=== PATIENT | female | born 1960 | race Caucasian/White ===

== ENCOUNTER 2016-10-16 17:15 | Emergency (ER) | payer OTHER ==
[~2016-10-16 17:15] MED LIST: NALOXONE HCL 0.4 MG/ML AMP IVP ONE
[2016-10-16] MEDS ORDERED: 0.9 % SODIUM CHLORIDE 1,000 ML IV ONE ×3 (17:40→18:36)
[2016-10-16 18:02] LABS: MEAN CORPUSCULAR HEMOGLOBIN 27.4 pg (28.0-34.0)
[2016-10-16 18:09] LABS: eGFR (African) 21; eGFR (Non-African) 17
[2016-10-16] MEDS ORDERED: 0.9 % SODIUM CHLORIDE 500 ML IV ONE (18:11)
--- NOTE | 2016-10-16 18:17 | ED Physician Documentation ---
Altered Mental Status - HISTORIAN Historian: patient, paramedics - HPI Chief Complaint: Altered Mental Status Additional Information: asst living pt nurse called stated sitting on toiled syncopal like. on ems arrival sitting on toilet yet but combative w/intent to transfer-on arrival to ed ess unresponsive but stable vs w/iv fluids rebreather mask. son is present asst w/hx and meds list Onset: hours (reportedly about 2-3 hrs. pt reportedly left [facility] over week end and took meds w/her) Last known Well Date: 10/12/16 Last Known Well Time: 12:00 Last known Well Code/Unknown Code: Unknown (exactly) Character of Altered Mental Status: confused, combative, decreased responsiveness Cognition is Usually: other (essentially unresponsive) Associated Symptoms: none (known) Further Comments: yes (son present helpful and appreciative at our care-agrees w /tnsf [facility] DR SHARMA to med ICU) - ROS EYES/ENT: other (light responsive) CVS/RESP: other (spo2 lo 80's on arrival but up to 100 w/rebreather resp slow deep w/o distress) MS/SKIN/LYMPH: denies: rash, ankle swelling - PAST HX Past History: psychiatric disorder, bipolar, other (IHD BIPOLAR GERD IHD SUBSTANCE ABUSE HEP CCOPD DEPRESSSION) Allergies/Adverse Reactions: Allergies Allergy/AdvReac Type Severity Reaction Status Date / Time Iksqgtw-Qwo-Hep Reductase Allergy Rash Verified 06/04/15 03:50 Inhibitor Home Medications: Ambulatory Orders Medication Instructions Recorded Albuterol Sulfate 2.5 mg IH Q4 PRN 06/07/15 Docusate Sodium [Colace] 100 mg PO DAILY av 06/07/15 Ipratropium [place] 0.2 mg IH Q4 PRN 06/07/15 Solifenacin Succinate [Vesicare] 10 mg PO DAILY u2 06/07/15 Amitriptyline HCl [Elavil] 50 mg PO HS 07/26/15 Cyclobenzaprine HCl [Flexeril] 10 mg PO TID 07/26/15 Lansoprazole [Lansoprazole] 30 mg PO DAILY 07/26/15 Milnacipran HCl [Savella] 100 mg PO BID 07/26/15 Melatonin 10 mg PO HS av 09/13/15 Acetaminophen with Codeine 1 each PO Q4 PRN #20 tablet 02/15/16 [Acetaminophen-Cod #3 Tablet] Amoxicillin [Amoxil] 500 mg PO TID #30 capsule 02/15/16 - SOCIAL HX Smoking History: other (UNKNOWN) Drug Use: methamphetamines, other (ACCORDING TO HISTORY AND FR SON) - FAMILY HX Family History: no significant history - VITAL SIGNS Vital Signs: Vital Signs Temp Pulse Resp BP Pulse Ox 68 136/61 100 10/16/16 17:49 02/15/16 14:37 10/16/16 17:49 - REVIEWED ASSESSMENTS Nursing Assessment Reviewed: Yes Vitals Reviewed: Yes ED Results Lab/Radiology - Orders Orders: ED Orders Category Date Time Status Arterial Blood Gas 1T Care 10/16/16 17:51 Active Continuous EKG monitoring Q30M Care 10/16/16 17:49 Active Continuous Pulse Oximetry Q30M Care 10/16/16 17:[address] IV Lock 1T Care 10/16/16 17:49 Active Urinary catheterization 1T Care 10/16/16 17:[address] BRAIN W/O CONTRAST Routine Exams 10/16/16 Ordered CBC/PLATELET/DIFF Routine Lab 10/16/16 17:50 Received CKMB Stat Lab 10/16/16 17:50 Received CMP Routine Lab 10/16/16 17:50 Received CREATINE KINASE Routine Lab 10/16/16 17:50 Received DRUG SCREEN URINE MEDICAL ONLY Stat Lab 10/16/16 Ordered TROPONIN I (cTnI) Stat Lab 10/16/16 17:50 Received 0.9 % Sodium Chloride [Normal Saline] 1,000 ml Med 10/16/16 17:40 Discontinued IV .STK-MED 0.9 % Sodium Chloride [Normal Saline] 1,000 ml Med 10/16/16 17:50 Active IV Q1H Oxygen Daily Oxygen 10/16/16 18:00 Ordered EKG WITH COMPARISON Stat Ther 10/16/16 Ordered Altered Mental Status Physical - Physical Exam General Appearance: moderate distress, lethargic, other (ess unresponsive) Neuro/Psych: depression slow to respond. No: eyes open HEENT: ALANNA, no apparent trauma, ENT inspection nml Neck: normal inspection, supple Respiratory: chest non-tender, breath sounds normal, wheezes (slight) CVS: reg rate & rhythm, heart sounds normal Abdomen: non-tender Skin: warm/dry. No: cyanosis, diaphoresis, jaundice Extremities: no evidence of injury, no edema Discharge Clincal Impression: substance abuse overdose-unresponsive Referrals: Leonel White MD [Primary Care Provider] - 2 Days Additional Instructions: pt pos for meth benzo and tricyclic-consul DR WHITE send to [facility] SHARMA for med icu adm. report to DR SHARMA Home Medications: Ambulatory Orders Albuterol Sulfate 2.5 mg IH Q4 PRN 06/07/15 Docusate Sodium [Colace] 100 mg PO DAILY av 06/07/15 Ipratropium [place] 0.2 mg IH Q4 PRN 06/07/15 Solifenacin Succinate [Vesicare] 10 mg PO DAILY u2 06/07/15 Amitriptyline HCl [Elavil] 50 mg PO HS 07/26/15 Cyclobenzaprine HCl [Flexeril] 10 mg PO TID 07/26/15 Lansoprazole [Lansoprazole] 30 mg PO DAILY 07/26/15 Milnacipran HCl [Savella] 100 mg PO BID 07/26/15 Melatonin 10 mg PO HS av 09/13/15 Acetaminophen with Codeine [Acetaminophen-Cod #3 Tablet] 1 each PO Q4 PRN #20 tablet 02/15/16 Amoxicillin [Amoxil] 500 mg PO TID #30 capsule 02/15/16 Condition: Fair Disposition: 02 XFER SHT-TRM HOSP Decision to Admit: [id number] Decision Time: 18:46
--- NOTE | 2016-10-16 18:17 | Diagnostic Imaging Report ---
[facility] [id number] [facility] [address] [place], [place]. [address] Report Submission Date: Oct 16, 2016 5:57:19 PM CDT Patient Study Name: ARON SIERRA Date: Oct 16, 2016 5:30:49 PM CDT Modality Type: CT\SR Gender: F Description: CT BRAIN W/O CONTRAST : 62 Institution: [facility] Physician: AYDE SANTOS Examination: CT head without contrast History: Altered mental status Comparison exam: None available Technique: Noncontrast head CT protocol. Findings: Ventricles and sulci are appropriate for patient age. Cerebrocerebellar parenchyma demonstrates normal attenuation. No evidence for parenchymal hemorrhage. No evidence for mass or mass effect. No midline shift. No extra axial fluid collections. Partial visualization of the paranasal sinuses , mastoid air cells, orbits, skull and scalp without gross irregularity. Impression: No acute parenchymal process. No hemorrhage. Electronically signed on Oct 16, 2016 5:57:19 PM CDT by: Connor WALKER
[2016-10-16 18:30] LABS: MONOCYTES % 7 % (0-11); SEGMENTED NEUTROPHILS % 78 % (39-79)
[2016-10-16] MEDS ORDERED: NALOXONE HCL 0.4 MG/ML AMP IVP ONE (18:55)
[2016-10-16 19:16] VITALS: BP 110/66
[2016-10-17 05:28] LABS: AMPHETAMINE NEGATIVE ng/mL (<1000); BARBITURATES NEGATIVE ng/mL (<300); CANNABINOIDS NEGATIVE ng/mL (< 50); COCAINE NEGATIVE ng/mL (<150); METHAMPHETAMINE NON NEGATIVE ng/mL (<1000); METHYLENEDIOXYMETHAMPHETAMINE NEGATIVE ng/mL (<500); OPIATES NEGATIVE ng/mL (<300)
== END 2016-10-16 19:09 | disposition short-term general hospital (02) ==
LOC: ED 17:15
DX: T50.904A Poisoning by unspecified drugs, medicaments and biological substances, undetermined, initial encounter (principal); X58.XXXA Exposure to other specified factors, initial encounter; Y93.9 Activity, unspecified; Y99.9 Unspecified external cause status
CPT/HCPCS: 51702; 70450; 80053; 82550; 82553; 84484; 85025; J2310; J7030; J7060; 80377; 96361; 96367; 96372; 99284; G0481; S1016

== ENCOUNTER 2018-07-31 11:46 | Emergency (ER) | payer OTHER ==
--- NOTE | 2018-07-31 12:52 | ED Physician Documentation ---
General Adult - HISTORIAN Historian: patient - HPI Stated Complaint: high blood pressure Chief Complaint: General Adult Additional Information: Patient presents [facility] ED via ambulance from [facility] after waking up this morning with a headache. Patient states she took her blood pressure and it was 201/113 so she took her morning medication of Metoprolol but the blood pressure did not come down. She was very worried about this and her headache got worse and she had an episode of vomiting. Upon arrival to ER patient blood pressure was 179/84. She was complaining of low back pain and left knee pain. She has a history of mood disorder and fibromyalgia. Onset: minutes Timing: still present Severity: mild - ROS CONST: no problems EYES/ENT: none CVS/RESP: denies: chest pain, shortness of breath GI/: vomiting. denies: abdominal pain, nausea MS/SKIN/LYMPH: none NEURO/PSYCH: headache - PAST HX Past History: COPD, other (mood disorder) Other History: none Surgeries/Procedures: none Allergies/Adverse Reactions: Allergies Allergy/AdvReac Type Severity Reaction Status Date / Time aspirin Allergy Unknown Verified 07/31/18 12:02 amlodipine Allergy Verified 07/31/18 12:02 Oarfudw-Tqd-Npp Reductase Allergy Rash Verified 07/31/18 12:02 Inhibitor Tgynfun-Jia-Pjz Reductase Allergy Rash Uncoded 07/31/18 12:02 Inhibitor Home Medications: Ambulatory Orders Medication Instructions Recorded Albuterol Sulfate 2.5 mg IH Q4 PRN 06/07/15 Docusate Sodium [Colace] 100 mg PO DAILY av 06/07/15 Ipratropium [place] 0.2 mg IH Q4 PRN 06/07/15 Solifenacin Succinate [Vesicare] 10 mg PO DAILY u2 06/07/15 Amitriptyline HCl [Elavil] 50 mg PO HS 07/26/15 Cyclobenzaprine HCl [Flexeril] 10 mg PO TID 07/26/15 Lansoprazole 30 mg PO DAILY 07/26/15 Milnacipran HCl [Savella] 100 mg PO BID 07/26/15 Melatonin 10 mg PO HS av 09/13/15 Acetaminophen with Codeine 1 each PO Q4 PRN #20 tablet 02/15/16 [Acetaminophen-Cod #3 Tablet] Amoxicillin [Amoxil] 500 mg PO TID #30 capsule 02/15/16 OLANZapine ODT [Zyprexa Odt] 10 mg PO BID #60 tab.rapdis 07/31/18 - SOCIAL HX Smoking History: non-smoker, quit greater than 1 year Alcohol Use: none Drug Use: none - FAMILY HX Family History: No - VITAL SIGNS Vital Signs: Vital Signs Temp Pulse Resp BP Pulse Ox 110/66 10/16/16 19:09 - REVIEWED ASSESSMENTS Nursing Assessment Reviewed: Yes Vitals Reviewed: Yes ED Results Lab/Radiology - Orders Orders: ED Orders Category Date Time Status OLANZapine ODT [ZyPREXA ODT] Med 07/31/18 11:59 Discontinued 10 mg SL NOW ONE General Adult Physical Exam - PHYSICAL EXAM GENERAL APPEARANCE: anxious EENT: ENT inspection normal, ALANNA NECK: normal inspection, supple RESPIRATORY: no resp distress, chest non-tender, breath sounds normal CVS: reg rate & rhythm, heart sounds normal ABDOMEN: soft, normal bowel sounds BACK: normal inspection, no CVA tenderness SKIN: warm/dry, normal color EXTREMITIES: non-tender, no evidence of injury, no edema NEURO: oriented X3, motor nml, other Discharge Clincal Impression: Accelerated essential hypertension, Anxiety Prescriptions: OLANZapine ODT [Zyprexa Odt] 10 mg PO BID #60 tab.rapdis Referrals: Leonel White MD [Primary Care Provider] - 2 Days Additional Instructions: 1. Take Zyprexa as needed for anxiety 2. Continue to take home medications as prescribed by PCP 3. Follow up with PCP within 1 week 4. Return to ER for new or worsening symptoms Condition: Stable Disposition: 01 HOME, SELF-CARE Decision to Admit: NO Date of Decison to Admit: 07/31/18 Decision Time: 12:56
[2018-07-31 13:20] VITALS: BP 142/92
== END 2018-07-31 13:13 | disposition home or self-care (01) ==
LOC: ED 11:46
DX: I10 Essential (primary) hypertension (principal); F41.9 Anxiety disorder, unspecified; Z87.891 Personal history of nicotine dependence
CPT/HCPCS: 99283